=== PATIENT | female | born 1960 | race Caucasian/White ===

== ENCOUNTER → 2020-06-17 14:24 | Outpatient (BNVA) | payer OTHER, SELFPAY | PROVIDERS: PCP Internal Medicine; Visit Provider Internal Medicine Gastroenterology ==

== ENCOUNTER 2025-01-10 14:07 | Outpatient (AMB) | payer MEDICARE, OTHER, SELFPAY ==
--- NOTE | 2025-01-10 14:36 | A.PHYSOV_ITS ---
Vital Signs 01/10/25 14:38 Height 5 ft 8 in Weight 150 lb BMI 22.8 Intake Visit Reasons: Bilateral hip pain Intake Note: Patient is a 64 year old female in office today for bilateral hip pain [employer] Required: No Allergies iodine Allergy (Mild, Verified 01/10/25 14:39) Hives HPI Comments Details: History of Present Illness The patient is a 64-year-old female presenting for a follow-up visit for persistent hip pain. She reports no improvement in her hip pain following cortisone injections. Patient underwent bilateral hip bursal injection 11/13/2024 without relief of her symptoms. Her The pain is localized over her hip, wakes her from sleep two to three times per night, and is exacerbated by side sleeping. Past treatments include topical agents such as Salonpas and lidocaine patches, which were not effective. She has previously used a CBD cream for a broken elbow, which she found effective for pain, but she is unable to find the same product now. She has not undergone physical therapy for her hips. The patient reports a history of chronic back pain, with known small herniated and bulging discs. She also has a history of osteoporosis and impaired kidney function, which restricts her use of analgesics to Tylenol. She declines stronger pain medications like oxycodone. Pain Description - Location: Pain is localized over the lateral hip. - Quality: The pain is severe enough to wake her from sleep. - Exacerbating factors: Lying on her side and palpation over the area. - Radiation: The pain does not radiate from her back. Procedure: Bilateral greater trochanteric bursitis injection 11/13/2024 [facility] Medical History (Updated 01/10/25 @ 14:52 by CECILIO Meléndez) Anal and rectal polyp Surgical History H/O colonoscopy H/O foot surgery H/O bilateral breast reduction surgery H/O hand surgery Family History (Updated 06/17/20 @ 14:28 by GANGA Cadena) Mother HTN (hypertension) Cancer High cholesterol Father No problems noted. Social History Household Members: Spouse Alcohol intake: current Alcohol intake frequency: does not drink Patient Tobacco Use Status: Former Tobacco user Review of Systems Narrative Review of Systems - Musculoskeletal: Reports localized hip pain and chronic back pain. - Constitutional: Reports disturbed sleep due to pain. - Neurological: Denies pain radiating from the back to the hips. Physical Exam Exam Exam: Physical Exam Lumbar Spine: Examination of her lumbar spine, there is no visible swelling or deformity. She is tender to lower lumbar facets. She is otherwise nontender. Full range of motion of the lumbar spine. She does have an increase in pain with facet loading. Special Tests: Lhermittes sign was negative Heel Toe walk is normal Left straight leg raise: Negative Right straight leg raise: Negative Special tests Sandie test is negative Ganslen's test is negative SI Joint compression test negative Cam test negative Piriformis stretch is negative Lower Extremities: Full range of motion bilateral lower extremities. No calf pain or edema. She is tender to bilateral greater trochanteric bursa. Neuro: Sensation: Intact to lower extremities bilaterally Strength L2 (Psoas): 5/5 on the left and 5/5 on the right. L3 (Quads): 5/5 on the left and 5/5 on the right. L4 (Ant tibialis): 5/5 on the left and 5/5 on the right. L5 (EHL) 5/5 on the left and 5/5 on the right. S1 (Gastroc): 5/5 on the left and 5/5 on the right. DTR L4: (Patellar) Left 2 Right 2 S1: (Achilles) Left 2 Right 2 Babinski Downgoing No pathologic clonus. No involuntary movement. Vital Signs: BMI result Body Mass Index 22.8 Assessment & Plan Assessment & Plan (1) Greater trochanteric bursitis of both hips: Code(s): M70.61 - Trochanteric bursitis, right hip; M70.62 - Trochanteric bursitis, left hip Category: Medical Plan Pain Management - Affect: The patient's pain is significantly disrupting her sleep, waking her up two to three times per night. - Analgesia: She reports taking nothing for the pain besides occasional Tylenol. - Activities of Daily Living: Sleep is the primary activity affected by her pain. - Aberrant Drug-Related Behaviors: The patient actively declined stronger pain medication, including oxycodone. Plan Patient was informed and verbally consented to the use of an ambient scribe for clinic note documentation during this visit. 1. Trochanteric Bursitis Of Hip The patient's presentation is consistent with trochanteric bursitis, but her symptoms have been refractory to cortisone injections. Hip joint pathology is less likely given her full range of motion on exam. The plan includes a course of physical therapy for hip strengthening for 3-4 weeks, and an order will be provided for AT in [place]. Topical treatments were discussed, including trying horse liniment from [employer] or a quality CBD cream from a regulated dispensary. She will continue to avoid strong oral analgesics and use Tylenol as needed. Follow-up is recommended after completing the course of physical therapy. Discussion Notes I discussed with the patient that her symptoms are clinically consistent with hip bursitis, but it is unclear why her pain has not responded to previous treatments like cortisone injections. I explained that the physical exam does not suggest a problem with the hip joint itself or radicular pain from her back. We agreed on a plan to start a course of physical therapy for 3-4 weeks to strengthen her hip, and I will provide her with a script for it. We also reviewed pain management options. I acknowledged her preference to avoid strong pain medications like oxycodone, and we agreed this is the best approach. The plan is to follow up after she has tried physical therapy. I suggested she could try [id number] horse liniment or visit a licensed dispensary to find a quality CBD cream, which she found helpful in the past. Patient Instructions - Begin a course of physical therapy for your hip. - I have sent an order for physical therapy to [facility] in [place]. - You may continue to use Tylenol for pain as needed. - You can try using horse liniment, which you can find at a [employer] store, for topical pain relief. - You can also try a CBD cream. - Go to a licensed cannabis store to find a quality product, and tell them you are looking for a CBD product for pain, not a THC product. - Avoid strong pain medicines like oxycodone. - Please return for a follow-up visit after you have tried physical therapy for a few weeks. Orders: Orders PT Evaluation and Treatment Today M70.61 - Trochanteric bursitis, right hip, M70.62 - Trochanteric bursitis, left hip Coding Level of Care Code Est Pt Level 3 (50692) Diagnoses Greater trochanteric bursitis of both hips M70.61; M70.62
[2025-01-10 14:38] VITALS: BMI 22.8
== END 2025-01-10 15:10 | disposition home or self-care (01) ==
LOC: HO.HPHYS 14:07
PROVIDERS: PCP Internal Medicine; Visit Provider Physician Assistant
DX: M70.61 Trochanteric bursitis, right hip (principal); M70.62 Trochanteric bursitis, left hip
CPT/HCPCS: 99213

== ENCOUNTER → 2025-01-10 14:07 | Outpatient (BNVA) | payer MEDICARE, OTHER, SELFPAY | PROVIDERS: PCP Internal Medicine; Visit Provider Physician Assistant | DX: M25.551 Pain in right hip (principal); M25.552 Pain in left hip; M17.11 Unilateral primary osteoarthritis, right knee; M17.12 Unilateral primary osteoarthritis, left knee | CPT/HCPCS: 99212 ==